=== PATIENT | male | born 1945 | race Caucasian/White ===

== ENCOUNTER 2022-01-10 10:22 | Inpatient (IN) | payer MEDICARE ==
[~2022-01-10] VITALS: Ht 180.3 cm; Wt 78.1 kg
[2022-01-10] MEDS ORDERED: ONDANSETRON 4MG TAB PO PRN (15:45)
[2022-01-10] MEDS ORDERED: ACETAMINOPHEN TAB 650MG DOSE (2X325MG) PO PRN (15:45)
[2022-01-10] MEDS ORDERED: MIRALAX *UNIT DOSE* 17GM PACKET PO PRN (15:45)
[2022-01-10 16:00] VITALS: BP 107/61
[2022-01-10] MEDS ORDERED: AMLO1TAB25 PO (16:59)
[2022-01-10] MEDS ORDERED: THIA100T7 PO (16:59)
[2022-01-10] MEDS ORDERED: METO200T28 PO (16:59)
[2022-01-10] MEDS ORDERED: AMAN100T PO (16:59)
[2022-01-10] MEDS ORDERED: VITA100093 PO (16:59)
[2022-01-10] MEDS ORDERED: ENOX40IN3 SC (16:59)
[2022-01-10] MEDS ORDERED: FOLI1TAB11 PO (16:59)
[2022-01-10] MEDS ORDERED: ATOR40TA75 PO (16:59)
[2022-01-10] MEDS ORDERED: FLOM0.4C39 PO (16:59)
[2022-01-10] MEDS ORDERED: HOME MED LIST COMPLETE! XX SCH (17:00)
[2022-01-10 20:00] VITALS: BP 104/66
[2022-01-10] MEDS: SENNA 8.6 MG TAB (SENOKOT) PO SCH (20:58)
[2022-01-10] MEDS: DOCUSATE SODIUM 100MG CAPSULE PO SCH (20:58)
[2022-01-10] MEDS: ACETAMINOPHEN 500 MG TAB PO SCH (20:58)
[2022-01-10] MEDS: METOPROLOL SUCC (TopROL XL) 100MG *XL* TAB PO SCH (20:59)
[2022-01-10] MEDS: ENOXAPARIN 40MG/0.4ML SYRINGE (J1650 PER 10MG) SC SCH (21:00)
[2022-01-10] MEDS: REMEDY PHYTOPLEX Z-GUARD PASTE 113GM TUBE (FROM STOREROOM PRODUCT) TOP SCH (21:00)
[2022-01-11 06:00] VITALS: BP 96/62
[2022-01-11 06:04] LABS: BASO % 0.4 % (0.0-1.0); EOS # 0.3 10^3/uL (0.0-0.5); EOS % 2.3 % (0.0-3.0); HEMOGLOBIN 11.1 g/dl (13.5-17.5); LYMPH # 1.2 10^3/uL (1.5-5.0); LYMPH % 10.7 % (24.0-44.0); MEAN CORPUSCULAR HEMOGLOBIN 29.4 pg (27.0-33.0); MEAN CORPUSCULAR HGB CONC 31.7 g/dl (32.0-36.5); MEAN CORPUSCULAR VOLUME 92.8 fl (80.0-96.0); MONO # 1.4 10^3/uL (0.0-0.8); MONO % 12.8 % (2.0-8.0); NEUTROPHILS # 8.1 10^3/uL (1.5-8.5); NEUTROPHILS % 73.3 % (36.0-66.0); PLATELET COUNT, AUTOMATED 169 10^3/uL (150-450); RED BLOOD COUNT 3.77 10^6/uL (4.30-6.10); WHITE BLOOD COUNT 11.1 10^3/uL (4.0-10.0)
[2022-01-11 06:34] LABS: ALKALINE PHOSPHATASE 177 U/L (45-117); ALT/SGPT 39 U/L (12-78); AST/SGOT 20 U/L (7-37); BLOOD UREA NITROGEN 13 MG/DL (7-18); CALCIUM LEVEL 8.8 MG/DL (8.8-10.2); CARBON DIOXIDE LEVEL 26 MEQ/L (21-32); CHLORIDE LEVEL 103 MEQ/L (98-107); CREATININE FOR GFR 0.68 MG/DL (0.70-1.30); GLOMERULAR FILTRATION RATE > 60.0 (>42); GLUCOSE, FASTING 110 MG/DL (70-100); POTASSIUM SERUM 3.9 MEQ/L (3.5-5.1); SODIUM LEVEL 135 MEQ/L (136-145); TOTAL PROTEIN 6.8 GM/DL (6.4-8.2)
[2022-01-11] MEDS: COMBIVENT RESPIMAT 100-20MCG INHALER 4GM INH SCH ×3 (08:00→20:44)
[2022-01-11] MEDS: ACETAMINOPHEN 500 MG TAB PO SCH ×3 (09:00→20:27)
[2022-01-11] MEDS: REMEDY PHYTOPLEX Z-GUARD PASTE 113GM TUBE (FROM STOREROOM PRODUCT) TOP SCH ×3 (09:00→20:29)
[2022-01-11] MEDS: DOCUSATE SODIUM 100MG CAPSULE PO SCH ×2 (09:00→20:27)
[2022-01-11] MEDS: POTASSIUM CHLORIDE 10MEQ SR TABLET PO SCH (09:40)
[2022-01-11] MEDS: ATORVASTATIN 20 MG TAB PO SCH (09:40)
[2022-01-11] MEDS: PANTOPRAZOLE 40MG TAB (PROTONIX) PO SCH (09:40)
[2022-01-11] MEDS: AMANTADINE 100MG TABLET PO SCH (09:41)
[2022-01-11] MEDS: TAMSULOSIN 0.4 MG CAP PO SCH (09:41)
[2022-01-11] MEDS: VITAMIN D 1,000 INTERNATIONAL UNITS TABLET PO SCH (09:41)
[2022-01-11] MEDS: FOLIC ACID 1MG TAB PO SCH (09:41)
[2022-01-11] MEDS: METOPROLOL SUCC (TopROL XL) 100MG *XL* TAB PO SCH ×2 (09:43→20:26)
[2022-01-11] MEDS ORDERED: PILL CUTTER 1 EACH XX PRN (12:55)
[2022-01-11] MEDS: THIAMINE 100 MG TAB PO SCH (13:53)
[2022-01-11 14:00] VITALS: BP 108/64
[2022-01-11] MEDS: guaiFENesin 200 MG TAB PO SCH ×2 (16:56→20:28)
[2022-01-11] MEDS: SODIUM CHLORIDE NASAL 0.65% SPRAY BTL (OCEAN) SCH ×2 (16:56→20:28)
[2022-01-11] MEDS ORDERED: FLUBLOK(EGG FREE)(QUAD)INFLUENZA VACC 0.5ML SYRINGE 18YRS & OLDER IM.IMMUN ONE (17:00)
[2022-01-11] MEDS ORDERED: PREVNAR-20 VACCINE 0.5ML SYRINGE IM.IMMUN ONE (17:00)
[2022-01-11] MEDS: PROPRANOLOL 10 MG TAB PO SCH ×2 (17:01→20:26)
[2022-01-11 20:00] VITALS: BP 117/61
[2022-01-11] MEDS: SENNA 8.6 MG TAB (SENOKOT) PO SCH (20:27)
[2022-01-11] MEDS: ENOXAPARIN 40MG/0.4ML SYRINGE (J1650 PER 10MG) SC SCH (20:28)
[2022-01-11] MEDS: FLUTICASONE PROP 0.05% NASAL SPRAY 16 GM (FLONASE) NARES SCH (20:28)
[2022-01-12 06:00] VITALS: BP 102/60
[2022-01-12 07:11] LABS: BASO # 0.1 10^3/uL (0.0-0.2); BASO % 0.5 % (0.0-1.0); EOS # 0.2 10^3/uL (0.0-0.5); HEMATOCRIT 34.5 % (42.0-52.0); LYMPH # 1.1 10^3/uL (1.5-5.0); LYMPH % 10.1 % (24.0-44.0); MEAN CORPUSCULAR HEMOGLOBIN 29.6 pg (27.0-33.0); MEAN CORPUSCULAR HGB CONC 31.9 g/dl (32.0-36.5); MONO # 1.4 10^3/uL (0.0-0.8); MONO % 13.4 % (2.0-8.0); NEUTROPHILS # 7.8 10^3/uL (1.5-8.5); NEUTROPHILS % 73.7 % (36.0-66.0); PLATELET COUNT, AUTOMATED 154 10^3/uL (150-450); RED BLOOD COUNT 3.71 10^6/uL (4.30-6.10); WHITE BLOOD COUNT 10.6 10^3/uL (4.0-10.0)
[2022-01-12] MEDS: PROPRANOLOL 10 MG TAB PO SCH ×3 (08:35→20:26)
[2022-01-12] MEDS: METOPROLOL SUCC (TopROL XL) 100MG *XL* TAB PO SCH ×2 (08:35→20:27)
[2022-01-12] MEDS: DOCUSATE SODIUM 100MG CAPSULE PO SCH ×2 (08:35→20:26)
[2022-01-12] MEDS: guaiFENesin 200 MG TAB PO SCH ×3 (08:43→20:28)
[2022-01-12] MEDS: FOLIC ACID 1MG TAB PO SCH (08:43)
[2022-01-12] MEDS: ATORVASTATIN 20 MG TAB PO SCH (08:43)
[2022-01-12] MEDS: VITAMIN D 1,000 INTERNATIONAL UNITS TABLET PO SCH (08:43)
[2022-01-12] MEDS: POTASSIUM CHLORIDE 10MEQ SR TABLET PO SCH (08:43)
[2022-01-12] MEDS: AMANTADINE 100MG TABLET PO SCH (08:43)
[2022-01-12] MEDS: ACETAMINOPHEN 500 MG TAB PO SCH ×3 (08:43→20:28)
[2022-01-12] MEDS: PANTOPRAZOLE 40MG TAB (PROTONIX) PO SCH (08:43)
[2022-01-12] MEDS: TAMSULOSIN 0.4 MG CAP PO SCH (08:43)
[2022-01-12] MEDS: THIAMINE 100 MG TAB PO SCH (08:43)
[2022-01-12] MEDS: FLUTICASONE PROP 0.05% NASAL SPRAY 16 GM (FLONASE) NARES SCH ×2 (08:44→20:28)
[2022-01-12] MEDS: SODIUM CHLORIDE NASAL 0.65% SPRAY BTL (OCEAN) SCH ×3 (08:44→20:28)
[2022-01-12] MEDS: REMEDY PHYTOPLEX Z-GUARD PASTE 113GM TUBE (FROM STOREROOM PRODUCT) TOP SCH ×3 (08:45→20:29)
[2022-01-12] MEDS: COMBIVENT RESPIMAT 100-20MCG INHALER 4GM INH SCH ×3 (08:52→20:43)
[2022-01-12 14:00] VITALS: BP 104/59
[2022-01-12 20:00] VITALS: BP 110/64
[2022-01-12] MEDS: SENNA 8.6 MG TAB (SENOKOT) PO SCH (20:27)
[2022-01-12] MEDS: ENOXAPARIN 40MG/0.4ML SYRINGE (J1650 PER 10MG) SC SCH (20:28)
[2022-01-13 06:00] VITALS: BP 112/80
[2022-01-13] MEDS: TAMSULOSIN 0.4 MG CAP PO SCH (08:39)
[2022-01-13] MEDS: DOCUSATE SODIUM 100MG CAPSULE PO SCH ×2 (08:39→20:05)
[2022-01-13] MEDS: ATORVASTATIN 20 MG TAB PO SCH (08:40)
[2022-01-13] MEDS: FOLIC ACID 1MG TAB PO SCH (08:40)
[2022-01-13] MEDS: POTASSIUM CHLORIDE 10MEQ SR TABLET PO SCH (08:41)
[2022-01-13] MEDS: METOPROLOL SUCC (TopROL XL) 100MG *XL* TAB PO SCH ×2 (08:41→20:05)
[2022-01-13] MEDS: AMANTADINE 100MG TABLET PO SCH (08:42)
[2022-01-13] MEDS: ACETAMINOPHEN 500 MG TAB PO SCH ×3 (08:42→20:13)
[2022-01-13] MEDS: guaiFENesin 200 MG TAB PO SCH ×3 (08:42→20:12)
[2022-01-13] MEDS: VITAMIN D 1,000 INTERNATIONAL UNITS TABLET PO SCH (08:42)
[2022-01-13] MEDS: THIAMINE 100 MG TAB PO SCH (08:42)
[2022-01-13] MEDS: FLUTICASONE PROP 0.05% NASAL SPRAY 16 GM (FLONASE) NARES SCH ×2 (08:43→20:15)
[2022-01-13] MEDS: SODIUM CHLORIDE NASAL 0.65% SPRAY BTL (OCEAN) SCH ×3 (08:43→20:15)
[2022-01-13] MEDS: PANTOPRAZOLE 40MG TAB (PROTONIX) PO SCH (08:43)
[2022-01-13] MEDS: PROPRANOLOL 10 MG TAB PO SCH ×3 (08:45→20:04)
[2022-01-13] MEDS: COMBIVENT RESPIMAT 100-20MCG INHALER 4GM INH SCH ×3 (08:46→20:33)
[2022-01-13] MEDS: REMEDY PHYTOPLEX Z-GUARD PASTE 113GM TUBE (FROM STOREROOM PRODUCT) TOP SCH ×3 (09:00→20:15)
[2022-01-13 14:00] VITALS: BP 118/63
[2022-01-13 20:00] VITALS: BP 108/64
[2022-01-13] MEDS: SENNA 8.6 MG TAB (SENOKOT) PO SCH (20:05)
[2022-01-13] MEDS: ENOXAPARIN 40MG/0.4ML SYRINGE (J1650 PER 10MG) SC SCH (20:13)
[2022-01-14 06:00] VITALS: BP 138/82
[2022-01-14 07:10] LABS: BASO % 0.6 % (0.0-1.0); EOS # 0.3 10^3/uL (0.0-0.5); EOS % 4.8 % (0.0-3.0); HEMATOCRIT 34.7 % (42.0-52.0); LYMPH # 0.9 10^3/uL (1.5-5.0); LYMPH % 12.9 % (24.0-44.0); MEAN CORPUSCULAR HEMOGLOBIN 29.3 pg (27.0-33.0); MEAN CORPUSCULAR HGB CONC 31.7 g/dl (32.0-36.5); MEAN CORPUSCULAR VOLUME 92.3 fl (80.0-96.0); MONO # 0.9 10^3/uL (0.0-0.8); NEUTROPHILS # 4.7 10^3/uL (1.5-8.5); NEUTROPHILS % 68.3 % (36.0-66.0); PLATELET COUNT, AUTOMATED 159 10^3/uL (150-450); RED BLOOD COUNT 3.76 10^6/uL (4.30-6.10); WHITE BLOOD COUNT 6.9 10^3/uL (4.0-10.0)
[2022-01-14 07:45] LABS: BLOOD UREA NITROGEN 5 MG/DL (7-18); CALCIUM LEVEL 9.1 MG/DL (8.8-10.2); CARBON DIOXIDE LEVEL 27 MEQ/L (21-32); CHLORIDE LEVEL 105 MEQ/L (98-107); CREATININE FOR GFR 0.59 MG/DL (0.70-1.30); GLOMERULAR FILTRATION RATE > 60.0 (>42); GLUCOSE, FASTING 104 MG/DL (70-100); POTASSIUM SERUM 3.9 MEQ/L (3.5-5.1); SODIUM LEVEL 137 MEQ/L (136-145)
[2022-01-14] MEDS: COMBIVENT RESPIMAT 100-20MCG INHALER 4GM INH SCH ×3 (08:00→20:54)
[2022-01-14] MEDS: REMEDY PHYTOPLEX Z-GUARD PASTE 113GM TUBE (FROM STOREROOM PRODUCT) TOP SCH ×3 (09:00→20:10)
[2022-01-14] MEDS: TAMSULOSIN 0.4 MG CAP PO SCH (09:11)
[2022-01-14] MEDS: DOCUSATE SODIUM 100MG CAPSULE PO SCH ×2 (09:11→20:09)
[2022-01-14] MEDS: THIAMINE 100 MG TAB PO SCH (09:11)
[2022-01-14] MEDS: METOPROLOL SUCC (TopROL XL) 100MG *XL* TAB PO SCH (09:11)
[2022-01-14] MEDS: ATORVASTATIN 20 MG TAB PO SCH (09:12)
[2022-01-14] MEDS: VITAMIN D 1,000 INTERNATIONAL UNITS TABLET PO SCH (09:12)
[2022-01-14] MEDS: ACETAMINOPHEN 500 MG TAB PO SCH ×3 (09:12→20:09)
[2022-01-14] MEDS: PANTOPRAZOLE 40MG TAB (PROTONIX) PO SCH (09:12)
[2022-01-14] MEDS: guaiFENesin 200 MG TAB PO SCH ×3 (09:13→20:09)
[2022-01-14] MEDS: PROPRANOLOL 10 MG TAB PO SCH ×3 (09:13→20:08)
[2022-01-14] MEDS: POTASSIUM CHLORIDE 10MEQ SR TABLET PO SCH (09:13)
[2022-01-14] MEDS: FOLIC ACID 1MG TAB PO SCH (09:13)
[2022-01-14] MEDS: AMANTADINE 100MG TABLET PO SCH (09:13)
[2022-01-14] MEDS: FLUTICASONE PROP 0.05% NASAL SPRAY 16 GM (FLONASE) NARES SCH ×2 (09:14→20:09)
[2022-01-14] MEDS: SODIUM CHLORIDE NASAL 0.65% SPRAY BTL (OCEAN) SCH ×3 (09:14→20:10)
[2022-01-14] MEDS: METOPROLOL TART 25 MG TABLET PO SCH ×2 (13:00→18:43)
[2022-01-14 14:00] VITALS: BP 109/58
[2022-01-14 20:00] VITALS: BP 126/86
[2022-01-14] MEDS: ENOXAPARIN 40MG/0.4ML SYRINGE (J1650 PER 10MG) SC SCH (20:08)
[2022-01-14] MEDS: traZODone 25MG PER 1/2 TABLET PO SCH (20:09)
[2022-01-14] MEDS: SENNA 8.6 MG TAB (SENOKOT) PO SCH (20:09)
[2022-01-15] MEDS: METOPROLOL TART 25 MG TABLET PO SCH ×4 (01:00→18:35)
[2022-01-15 06:00] VITALS: BP 130/88
[2022-01-15] MEDS: guaiFENesin 200 MG TAB PO SCH ×3 (08:38→20:42)
[2022-01-15] MEDS: FOLIC ACID 1MG TAB PO SCH (08:38)
[2022-01-15] MEDS: AMANTADINE 100MG TABLET PO SCH (08:38)
[2022-01-15] MEDS: ATORVASTATIN 20 MG TAB PO SCH (08:38)
[2022-01-15] MEDS: THIAMINE 100 MG TAB PO SCH (08:38)
[2022-01-15] MEDS: POTASSIUM CHLORIDE 10MEQ SR TABLET PO SCH (08:38)
[2022-01-15] MEDS: DOCUSATE SODIUM 100MG CAPSULE PO SCH ×2 (08:38→20:42)
[2022-01-15] MEDS: TAMSULOSIN 0.4 MG CAP PO SCH (08:38)
[2022-01-15] MEDS: ACETAMINOPHEN 500 MG TAB PO SCH ×3 (08:39→20:43)
[2022-01-15] MEDS: PANTOPRAZOLE 40MG TAB (PROTONIX) PO SCH (08:39)
[2022-01-15] MEDS: VITAMIN D 1,000 INTERNATIONAL UNITS TABLET PO SCH (08:39)
[2022-01-15] MEDS: PROPRANOLOL 10 MG TAB PO SCH ×3 (08:39→20:42)
[2022-01-15] MEDS: REMEDY PHYTOPLEX Z-GUARD PASTE 113GM TUBE (FROM STOREROOM PRODUCT) TOP SCH ×3 (08:40→20:44)
[2022-01-15] MEDS: SODIUM CHLORIDE NASAL 0.65% SPRAY BTL (OCEAN) SCH ×3 (08:40→20:43)
[2022-01-15] MEDS: FLUTICASONE PROP 0.05% NASAL SPRAY 16 GM (FLONASE) NARES SCH ×2 (08:40→20:43)
[2022-01-15] MEDS: COMBIVENT RESPIMAT 100-20MCG INHALER 4GM INH SCH ×3 (09:28→21:09)
[2022-01-15 14:00] VITALS: BP 116/66
[2022-01-15] MEDS: DICLOFENAC EPOLAMINE 1.3 % PATCH TOP SCH ×2 (15:53→20:41)
[2022-01-15 20:00] VITALS: BP 117/66
[2022-01-15] MEDS: ENOXAPARIN 40MG/0.4ML SYRINGE (J1650 PER 10MG) SC SCH (20:41)
[2022-01-15] MEDS: SENNA 8.6 MG TAB (SENOKOT) PO SCH (20:42)
[2022-01-15] MEDS: traZODone 25MG PER 1/2 TABLET PO SCH (20:42)
[2022-01-16] MEDS: METOPROLOL TART 25 MG TABLET PO SCH ×4 (00:56→18:37)
[2022-01-16 06:00] VITALS: BP 118/74
[2022-01-16 06:40] LABS: BASO # 0.1 10^3/uL (0.0-0.2); BASO % 0.6 % (0.0-1.0); EOS # 0.3 10^3/uL (0.0-0.5); EOS % 3.3 % (0.0-3.0); HEMOGLOBIN 10.9 g/dl (13.5-17.5); LYMPH # 1.2 10^3/uL (1.5-5.0); LYMPH % 13.3 % (24.0-44.0); MEAN CORPUSCULAR HEMOGLOBIN 29.1 pg (27.0-33.0); MEAN CORPUSCULAR HGB CONC 32.1 g/dl (32.0-36.5); MEAN CORPUSCULAR VOLUME 90.9 fl (80.0-96.0); MONO # 1.2 10^3/uL (0.0-0.8); MONO % 13.7 % (2.0-8.0); NEUTROPHILS # 6.1 10^3/uL (1.5-8.5); NEUTROPHILS % 68.5 % (36.0-66.0); PLATELET COUNT, AUTOMATED 171 10^3/uL (150-450); RED BLOOD COUNT 3.74 10^6/uL (4.30-6.10)
[2022-01-16 07:12] LABS: BLOOD UREA NITROGEN 6 MG/DL (7-18); CALCIUM LEVEL 8.7 MG/DL (8.8-10.2); CARBON DIOXIDE LEVEL 25 MEQ/L (21-32); CHLORIDE LEVEL 105 MEQ/L (98-107); CREATININE FOR GFR 0.53 MG/DL (0.70-1.30); GLOMERULAR FILTRATION RATE > 60.0 (>42); GLUCOSE, FASTING 99 MG/DL (70-100); POTASSIUM SERUM 3.8 MEQ/L (3.5-5.1); SODIUM LEVEL 138 MEQ/L (136-145)
[2022-01-16] MEDS: COMBIVENT RESPIMAT 100-20MCG INHALER 4GM INH SCH ×3 (07:21→20:32)
[2022-01-16] MEDS: DICLOFENAC EPOLAMINE 1.3 % PATCH TOP SCH ×2 (08:08→21:02)
[2022-01-16] MEDS: AMANTADINE 100MG TABLET PO SCH (08:08)
[2022-01-16] MEDS: ATORVASTATIN 20 MG TAB PO SCH (08:08)
[2022-01-16] MEDS: ACETAMINOPHEN 500 MG TAB PO SCH ×3 (08:09→21:03)
[2022-01-16] MEDS: DOCUSATE SODIUM 100MG CAPSULE PO SCH ×2 (08:10→21:02)
[2022-01-16] MEDS: THIAMINE 100 MG TAB PO SCH (08:10)
[2022-01-16] MEDS: guaiFENesin 200 MG TAB PO SCH ×3 (08:10→21:02)
[2022-01-16] MEDS: TAMSULOSIN 0.4 MG CAP PO SCH (08:10)
[2022-01-16] MEDS: POTASSIUM CHLORIDE 10MEQ SR TABLET PO SCH (08:11)
[2022-01-16] MEDS: PANTOPRAZOLE 40MG TAB (PROTONIX) PO SCH (08:11)
[2022-01-16] MEDS: VITAMIN D 1,000 INTERNATIONAL UNITS TABLET PO SCH (08:11)
[2022-01-16] MEDS: PROPRANOLOL 10 MG TAB PO SCH ×3 (08:12→21:04)
[2022-01-16] MEDS: FOLIC ACID 1MG TAB PO SCH (08:15)
[2022-01-16] MEDS: FLUTICASONE PROP 0.05% NASAL SPRAY 16 GM (FLONASE) NARES SCH ×2 (08:15→21:08)
[2022-01-16] MEDS: SODIUM CHLORIDE NASAL 0.65% SPRAY BTL (OCEAN) SCH ×3 (08:16→21:07)
[2022-01-16] MEDS: REMEDY PHYTOPLEX Z-GUARD PASTE 113GM TUBE (FROM STOREROOM PRODUCT) TOP SCH ×3 (08:19→21:08)
[2022-01-16] MEDS: NYSTATIN 100,000 UNITS/GM TOPICAL PWD 15GM TOP SCH ×2 (13:47→21:08)
[2022-01-16 14:00] VITALS: BP 113/65
[2022-01-16 20:00] VITALS: BP 110/61
[2022-01-16] MEDS: traZODone 25MG PER 1/2 TABLET PO SCH (21:02)
[2022-01-16] MEDS: ENOXAPARIN 40MG/0.4ML SYRINGE (J1650 PER 10MG) SC SCH (21:02)
[2022-01-16] MEDS: SENNA 8.6 MG TAB (SENOKOT) PO SCH (21:03)
[2022-01-17] MEDS: METOPROLOL TART 25 MG TABLET PO SCH ×4 (01:00→18:58)
[2022-01-17 06:00] VITALS: BP 108/74
[2022-01-17] MEDS: COMBIVENT RESPIMAT 100-20MCG INHALER 4GM INH SCH ×3 (07:14→21:14)
[2022-01-17] MEDS: VITAMIN D 1,000 INTERNATIONAL UNITS TABLET PO SCH (08:57)
[2022-01-17] MEDS: guaiFENesin 200 MG TAB PO SCH ×3 (08:57→20:17)
[2022-01-17] MEDS: POTASSIUM CHLORIDE 10MEQ SR TABLET PO SCH (08:57)
[2022-01-17] MEDS: AMANTADINE 100MG TABLET PO SCH (08:57)
[2022-01-17] MEDS: ATORVASTATIN 20 MG TAB PO SCH (08:58)
[2022-01-17] MEDS: PANTOPRAZOLE 40MG TAB (PROTONIX) PO SCH (08:58)
[2022-01-17] MEDS: THIAMINE 100 MG TAB PO SCH (08:58)
[2022-01-17] MEDS: DOCUSATE SODIUM 100MG CAPSULE PO SCH ×2 (08:58→20:15)
[2022-01-17] MEDS: TAMSULOSIN 0.4 MG CAP PO SCH (08:58)
[2022-01-17] MEDS: FOLIC ACID 1MG TAB PO SCH (08:59)
[2022-01-17] MEDS: PROPRANOLOL 10 MG TAB PO SCH ×3 (09:03→20:18)
[2022-01-17] MEDS: ACETAMINOPHEN 500 MG TAB PO SCH ×3 (09:03→20:16)
[2022-01-17] MEDS: FLUTICASONE PROP 0.05% NASAL SPRAY 16 GM (FLONASE) NARES SCH ×2 (09:04→20:21)
[2022-01-17] MEDS: DICLOFENAC EPOLAMINE 1.3 % PATCH TOP SCH ×2 (09:04→20:17)
[2022-01-17] MEDS: REMEDY PHYTOPLEX Z-GUARD PASTE 113GM TUBE (FROM STOREROOM PRODUCT) TOP SCH ×3 (09:04→20:22)
[2022-01-17] MEDS: NYSTATIN 100,000 UNITS/GM TOPICAL PWD 15GM TOP SCH ×2 (09:04→20:22)
[2022-01-17] MEDS: SODIUM CHLORIDE NASAL 0.65% SPRAY BTL (OCEAN) SCH ×3 (09:04→20:21)
[2022-01-17 14:00] VITALS: BP 119/61
[2022-01-17 18:00] VITALS: BP 116/82
[2022-01-17] MEDS: SENNA 8.6 MG TAB (SENOKOT) PO SCH (20:15)
[2022-01-17] MEDS: traZODone 25MG PER 1/2 TABLET PO SCH (20:16)
[2022-01-17] MEDS: ENOXAPARIN 40MG/0.4ML SYRINGE (J1650 PER 10MG) SC SCH (20:20)
[2022-01-18] MEDS: METOPROLOL TART 25 MG TABLET PO SCH ×4 (01:00→18:29)
[2022-01-18 05:55] LABS: BASO # 0.1 10^3/uL (0.0-0.2); BASO % 0.7 % (0.0-1.0); EOS # 0.3 10^3/uL (0.0-0.5); EOS % 4.3 % (0.0-3.0); HEMATOCRIT 32.8 % (42.0-52.0); HEMOGLOBIN 10.5 g/dl (13.5-17.5); LYMPH # 1.5 10^3/uL (1.5-5.0); LYMPH % 19.9 % (24.0-44.0); MEAN CORPUSCULAR HEMOGLOBIN 29.2 pg (27.0-33.0); MEAN CORPUSCULAR VOLUME 91.4 fl (80.0-96.0); MONO % 13.5 % (2.0-8.0); NEUTROPHILS # 4.5 10^3/uL (1.5-8.5); NEUTROPHILS % 60.1 % (36.0-66.0); PLATELET COUNT, AUTOMATED 188 10^3/uL (150-450); RED BLOOD COUNT 3.59 10^6/uL (4.30-6.10); WHITE BLOOD COUNT 7.4 10^3/uL (4.0-10.0)
[2022-01-18 06:00] VITALS: BP 127/73
[2022-01-18 06:28] LABS: BLOOD UREA NITROGEN 7 MG/DL (7-18); CARBON DIOXIDE LEVEL 27 MEQ/L (21-32); CHLORIDE LEVEL 105 MEQ/L (98-107); CREATININE FOR GFR 0.68 MG/DL (0.70-1.30); GLOMERULAR FILTRATION RATE > 60.0 (>42); GLUCOSE, FASTING 106 MG/DL (70-100); POTASSIUM SERUM 3.9 MEQ/L (3.5-5.1); SODIUM LEVEL 137 MEQ/L (136-145)
[2022-01-18] MEDS: COMBIVENT RESPIMAT 100-20MCG INHALER 4GM INH SCH ×3 (07:17→21:25)
[2022-01-18] MEDS: ATORVASTATIN 20 MG TAB PO SCH (08:29)
[2022-01-18] MEDS: PANTOPRAZOLE 40MG TAB (PROTONIX) PO SCH (08:29)
[2022-01-18] MEDS: AMANTADINE 100MG TABLET PO SCH (08:29)
[2022-01-18] MEDS: guaiFENesin 200 MG TAB PO SCH ×3 (08:29→20:53)
[2022-01-18] MEDS: DICLOFENAC EPOLAMINE 1.3 % PATCH TOP SCH ×2 (08:29→20:55)
[2022-01-18] MEDS: DOCUSATE SODIUM 100MG CAPSULE PO SCH ×2 (08:29→20:55)
[2022-01-18] MEDS: VITAMIN D 1,000 INTERNATIONAL UNITS TABLET PO SCH (08:29)
[2022-01-18] MEDS: ACETAMINOPHEN 500 MG TAB PO SCH ×3 (08:29→20:55)
[2022-01-18] MEDS: TAMSULOSIN 0.4 MG CAP PO SCH (08:30)
[2022-01-18] MEDS: POTASSIUM CHLORIDE 10MEQ SR TABLET PO SCH (08:30)
[2022-01-18] MEDS: FOLIC ACID 1MG TAB PO SCH (08:30)
[2022-01-18] MEDS: THIAMINE 100 MG TAB PO SCH (08:30)
[2022-01-18] MEDS: REMEDY PHYTOPLEX Z-GUARD PASTE 113GM TUBE (FROM STOREROOM PRODUCT) TOP SCH ×3 (08:31→20:56)
[2022-01-18] MEDS: NYSTATIN 100,000 UNITS/GM TOPICAL PWD 15GM TOP SCH ×2 (08:32→20:56)
[2022-01-18] MEDS: PROPRANOLOL 10 MG TAB PO SCH ×3 (08:32→20:54)
[2022-01-18] MEDS: FLUTICASONE PROP 0.05% NASAL SPRAY 16 GM (FLONASE) NARES SCH ×2 (08:33→20:56)
[2022-01-18] MEDS: SODIUM CHLORIDE NASAL 0.65% SPRAY BTL (OCEAN) SCH ×3 (08:33→20:56)
[2022-01-18 14:10] VITALS: BP 104/59
[2022-01-18 20:00] VITALS: BP 122/63
[2022-01-18] MEDS: ENOXAPARIN 40MG/0.4ML SYRINGE (J1650 PER 10MG) SC SCH (20:53)
[2022-01-18] MEDS: SENNA 8.6 MG TAB (SENOKOT) PO SCH (20:55)
[2022-01-18] MEDS: traZODone 25MG PER 1/2 TABLET PO SCH (20:55)
[2022-01-19] MEDS: METOPROLOL TART 25 MG TABLET PO SCH ×4 (01:00→18:47)
[2022-01-19 06:00] VITALS: BP 150/79
[2022-01-19] MEDS: COMBIVENT RESPIMAT 100-20MCG INHALER 4GM INH SCH ×3 (07:22→20:56)
[2022-01-19] MEDS: ATORVASTATIN 20 MG TAB PO SCH (08:41)
[2022-01-19] MEDS: DICLOFENAC EPOLAMINE 1.3 % PATCH TOP SCH ×2 (08:41→20:48)
[2022-01-19] MEDS: ACETAMINOPHEN 500 MG TAB PO SCH ×3 (08:41→20:25)
[2022-01-19] MEDS: guaiFENesin 200 MG TAB PO SCH ×3 (08:41→20:26)
[2022-01-19] MEDS: THIAMINE 100 MG TAB PO SCH (08:42)
[2022-01-19] MEDS: PANTOPRAZOLE 40MG TAB (PROTONIX) PO SCH (08:42)
[2022-01-19] MEDS: VITAMIN D 1,000 INTERNATIONAL UNITS TABLET PO SCH (08:42)
[2022-01-19] MEDS: FOLIC ACID 1MG TAB PO SCH (08:42)
[2022-01-19] MEDS: TAMSULOSIN 0.4 MG CAP PO SCH (08:42)
[2022-01-19] MEDS: DOCUSATE SODIUM 100MG CAPSULE PO SCH ×2 (08:42→20:26)
[2022-01-19] MEDS: POTASSIUM CHLORIDE 10MEQ SR TABLET PO SCH (08:42)
[2022-01-19] MEDS: AMANTADINE 100MG TABLET PO SCH (08:42)
[2022-01-19] MEDS: NYSTATIN 100,000 UNITS/GM TOPICAL PWD 15GM TOP SCH ×2 (08:43→20:27)
[2022-01-19] MEDS: PROPRANOLOL 10 MG TAB PO SCH ×3 (08:43→20:23)
[2022-01-19] MEDS: FLUTICASONE PROP 0.05% NASAL SPRAY 16 GM (FLONASE) NARES SCH ×2 (08:44→20:27)
[2022-01-19] MEDS: SODIUM CHLORIDE NASAL 0.65% SPRAY BTL (OCEAN) SCH ×3 (08:44→20:27)
[2022-01-19] MEDS: REMEDY PHYTOPLEX Z-GUARD PASTE 113GM TUBE (FROM STOREROOM PRODUCT) TOP SCH ×3 (08:44→20:27)
[2022-01-19 14:00] VITALS: BP 108/61
[2022-01-19 20:00] VITALS: BP 114/66
[2022-01-19] MEDS: traZODone 25MG PER 1/2 TABLET PO SCH (20:25)
[2022-01-19] MEDS: SENNA 8.6 MG TAB (SENOKOT) PO SCH (20:26)
[2022-01-19] MEDS: ENOXAPARIN 40MG/0.4ML SYRINGE (J1650 PER 10MG) SC SCH (20:26)
[2022-01-20] MEDS: METOPROLOL TART 25 MG TABLET PO SCH ×4 (01:10→18:49)
[2022-01-20 06:00] VITALS: BP 109/56
[2022-01-20] MEDS: COMBIVENT RESPIMAT 100-20MCG INHALER 4GM INH SCH ×3 (07:18→20:22)
[2022-01-20] MEDS: PANTOPRAZOLE 40MG TAB (PROTONIX) PO SCH (08:10)
[2022-01-20] MEDS: THIAMINE 100 MG TAB PO SCH (08:10)
[2022-01-20] MEDS: VITAMIN D 1,000 INTERNATIONAL UNITS TABLET PO SCH (08:10)
[2022-01-20] MEDS: POTASSIUM CHLORIDE 10MEQ SR TABLET PO SCH (08:10)
[2022-01-20] MEDS: TAMSULOSIN 0.4 MG CAP PO SCH (08:10)
[2022-01-20] MEDS: guaiFENesin 200 MG TAB PO SCH ×3 (08:11→20:29)
[2022-01-20] MEDS: DOCUSATE SODIUM 100MG CAPSULE PO SCH ×2 (08:11→20:29)
[2022-01-20] MEDS: FOLIC ACID 1MG TAB PO SCH (08:11)
[2022-01-20] MEDS: ATORVASTATIN 20 MG TAB PO SCH (08:11)
[2022-01-20] MEDS: DICLOFENAC EPOLAMINE 1.3 % PATCH TOP SCH ×2 (08:11→20:30)
[2022-01-20] MEDS: SODIUM CHLORIDE NASAL 0.65% SPRAY BTL (OCEAN) SCH ×3 (08:12→20:30)
[2022-01-20] MEDS: AMANTADINE 100MG TABLET PO SCH (08:12)
[2022-01-20] MEDS: ACETAMINOPHEN 500 MG TAB PO SCH ×3 (08:12→20:29)
[2022-01-20] MEDS: FLUTICASONE PROP 0.05% NASAL SPRAY 16 GM (FLONASE) NARES SCH ×2 (08:12→20:30)
[2022-01-20] MEDS: REMEDY PHYTOPLEX Z-GUARD PASTE 113GM TUBE (FROM STOREROOM PRODUCT) TOP SCH ×3 (08:13→20:31)
[2022-01-20] MEDS: NYSTATIN 100,000 UNITS/GM TOPICAL PWD 15GM TOP SCH ×2 (08:13→20:31)
[2022-01-20] MEDS: PROPRANOLOL 10 MG TAB PO SCH ×3 (08:14→20:30)
[2022-01-20 14:00] VITALS: BP 104/55
[2022-01-20 20:00] VITALS: BP 124/82
[2022-01-20] MEDS: SENNA 8.6 MG TAB (SENOKOT) PO SCH (20:28)
[2022-01-20] MEDS: traZODone 25MG PER 1/2 TABLET PO SCH (20:28)
[2022-01-20] MEDS: ENOXAPARIN 40MG/0.4ML SYRINGE (J1650 PER 10MG) SC SCH (20:30)
[2022-01-21] MEDS: METOPROLOL TART 25 MG TABLET PO SCH ×4 (01:00→18:12)
[2022-01-21 06:00] VITALS: BP 120/70
[2022-01-21] MEDS: PANTOPRAZOLE 40MG TAB (PROTONIX) PO SCH (08:39)
[2022-01-21] MEDS: guaiFENesin 200 MG TAB PO SCH ×3 (08:39→20:06)
[2022-01-21] MEDS: TAMSULOSIN 0.4 MG CAP PO SCH (08:40)
[2022-01-21] MEDS: THIAMINE 100 MG TAB PO SCH (08:40)
[2022-01-21] MEDS: POTASSIUM CHLORIDE 10MEQ SR TABLET PO SCH (08:40)
[2022-01-21] MEDS: FOLIC ACID 1MG TAB PO SCH (08:40)
[2022-01-21] MEDS: ATORVASTATIN 20 MG TAB PO SCH (08:40)
[2022-01-21] MEDS: AMANTADINE 100MG TABLET PO SCH (08:40)
[2022-01-21] MEDS: PROPRANOLOL 10 MG TAB PO SCH ×3 (08:40→20:08)
[2022-01-21] MEDS: VITAMIN D 1,000 INTERNATIONAL UNITS TABLET PO SCH (08:40)
[2022-01-21] MEDS: ACETAMINOPHEN 500 MG TAB PO SCH ×3 (08:41→20:06)
[2022-01-21] MEDS: DICLOFENAC EPOLAMINE 1.3 % PATCH TOP SCH ×2 (08:41→20:06)
[2022-01-21] MEDS: DOCUSATE SODIUM 100MG CAPSULE PO SCH ×2 (08:41→20:08)
[2022-01-21] MEDS: FLUTICASONE PROP 0.05% NASAL SPRAY 16 GM (FLONASE) NARES SCH ×2 (08:43→20:09)
[2022-01-21] MEDS: NYSTATIN 100,000 UNITS/GM TOPICAL PWD 15GM TOP SCH ×2 (08:43→20:08)
[2022-01-21] MEDS: SODIUM CHLORIDE NASAL 0.65% SPRAY BTL (OCEAN) SCH ×3 (08:43→20:09)
[2022-01-21] MEDS: REMEDY PHYTOPLEX Z-GUARD PASTE 113GM TUBE (FROM STOREROOM PRODUCT) TOP SCH ×3 (08:44→20:08)
[2022-01-21] MEDS: COMBIVENT RESPIMAT 100-20MCG INHALER 4GM INH SCH ×3 (09:00→21:13)
[2022-01-21 10:22] LABS: BASO # 0.1 10^3/uL (0.0-0.2); BASO % 0.5 % (0.0-1.0); EOS # 0.3 10^3/uL (0.0-0.5); EOS % 3.3 % (0.0-3.0); HEMATOCRIT 34.9 % (42.0-52.0); HEMOGLOBIN 10.8 g/dl (13.5-17.5); LYMPH # 1.2 10^3/uL (1.5-5.0); MEAN CORPUSCULAR HEMOGLOBIN 28.9 pg (27.0-33.0); MEAN CORPUSCULAR HGB CONC 30.9 g/dl (32.0-36.5); MEAN CORPUSCULAR VOLUME 93.3 fl (80.0-96.0); MONO # 0.9 10^3/uL (0.0-0.8); MONO % 9.6 % (2.0-8.0); NEUTROPHILS # 7.2 10^3/uL (1.5-8.5); NEUTROPHILS % 73.4 % (36.0-66.0); PLATELET COUNT, AUTOMATED 263 10^3/uL (150-450); RED BLOOD COUNT 3.74 10^6/uL (4.30-6.10); WHITE BLOOD COUNT 9.8 10^3/uL (4.0-10.0)
[2022-01-21 10:59] LABS: BLOOD UREA NITROGEN 8 MG/DL (7-18); CALCIUM LEVEL 8.8 MG/DL (8.8-10.2); CARBON DIOXIDE LEVEL 28 MEQ/L (21-32); CHLORIDE LEVEL 106 MEQ/L (98-107); CREATININE FOR GFR 0.69 MG/DL (0.70-1.30); GLOMERULAR FILTRATION RATE > 60.0 (>42); GLUCOSE, FASTING 103 MG/DL (70-100); POTASSIUM SERUM 3.9 MEQ/L (3.5-5.1); SODIUM LEVEL 140 MEQ/L (136-145)
[2022-01-21 12:05] VITALS: BP 120/65
[2022-01-21 14:00] VITALS: BP 101/61
[2022-01-21 18:12] VITALS: BP 121/68
[2022-01-21 20:00] VITALS: BP 110/62
[2022-01-21] MEDS: ENOXAPARIN 40MG/0.4ML SYRINGE (J1650 PER 10MG) SC SCH (20:07)
[2022-01-21] MEDS: SENNA 8.6 MG TAB (SENOKOT) PO SCH (20:07)
[2022-01-21] MEDS: traZODone 25MG PER 1/2 TABLET PO SCH (20:08)
[2022-01-22] MEDS: METOPROLOL TART 25 MG TABLET PO SCH ×4 (01:00→17:35)
[2022-01-22 06:00] VITALS: BP 119/70
[2022-01-22] MEDS: FOLIC ACID 1MG TAB PO SCH (08:15)
[2022-01-22] MEDS: AMANTADINE 100MG TABLET PO SCH (08:15)
[2022-01-22] MEDS: guaiFENesin 200 MG TAB PO SCH ×3 (08:15→20:55)
[2022-01-22] MEDS: VITAMIN D 1,000 INTERNATIONAL UNITS TABLET PO SCH (08:15)
[2022-01-22] MEDS: ATORVASTATIN 20 MG TAB PO SCH (08:15)
[2022-01-22] MEDS: POTASSIUM CHLORIDE 10MEQ SR TABLET PO SCH (08:15)
[2022-01-22] MEDS: PROPRANOLOL 10 MG TAB PO SCH ×3 (08:16→20:56)
[2022-01-22] MEDS: THIAMINE 100 MG TAB PO SCH (08:16)
[2022-01-22] MEDS: ACETAMINOPHEN 500 MG TAB PO SCH ×3 (08:16→20:56)
[2022-01-22] MEDS: DOCUSATE SODIUM 100MG CAPSULE PO SCH ×2 (08:16→20:58)
[2022-01-22] MEDS: TAMSULOSIN 0.4 MG CAP PO SCH (08:16)
[2022-01-22] MEDS: REMEDY PHYTOPLEX Z-GUARD PASTE 113GM TUBE (FROM STOREROOM PRODUCT) TOP SCH ×3 (08:17→20:57)
[2022-01-22] MEDS: FLUTICASONE PROP 0.05% NASAL SPRAY 16 GM (FLONASE) NARES SCH ×2 (08:17→20:58)
[2022-01-22] MEDS: NYSTATIN 100,000 UNITS/GM TOPICAL PWD 15GM TOP SCH ×2 (08:17→20:58)
[2022-01-22] MEDS: SODIUM CHLORIDE NASAL 0.65% SPRAY BTL (OCEAN) SCH ×3 (08:17→20:58)
[2022-01-22] MEDS: PANTOPRAZOLE 40MG TAB (PROTONIX) PO SCH (08:17)
[2022-01-22] MEDS: DICLOFENAC EPOLAMINE 1.3 % PATCH TOP SCH ×2 (08:17→20:59)
[2022-01-22] MEDS: COMBIVENT RESPIMAT 100-20MCG INHALER 4GM INH SCH ×3 (08:55→20:34)
[2022-01-22 14:00] VITALS: BP 100/68
[2022-01-22 17:33] VITALS: BP 113/60
[2022-01-22 20:00] VITALS: BP 101/68
[2022-01-22] MEDS: traZODone 25MG PER 1/2 TABLET PO SCH (20:55)
[2022-01-22] MEDS: ENOXAPARIN 40MG/0.4ML SYRINGE (J1650 PER 10MG) SC SCH (20:57)
[2022-01-22] MEDS: SENNA 8.6 MG TAB (SENOKOT) PO SCH (20:58)
[2022-01-22 23:33] VITALS: BP 111/55
[2022-01-23] MEDS: METOPROLOL TART 25 MG TABLET PO SCH ×4 (00:47→18:58)
[2022-01-23 06:00] VITALS: BP 118/65
[2022-01-23 06:47] LABS: BASO % 0.5 % (0.0-1.0); EOS # 0.3 10^3/uL (0.0-0.5); EOS % 3.7 % (0.0-3.0); HEMATOCRIT 32.7 % (42.0-52.0); HEMOGLOBIN 10.5 g/dl (13.5-17.5); LYMPH # 1.4 10^3/uL (1.5-5.0); LYMPH % 16.8 % (24.0-44.0); MEAN CORPUSCULAR HEMOGLOBIN 29.4 pg (27.0-33.0); MEAN CORPUSCULAR HGB CONC 32.1 g/dl (32.0-36.5); MEAN CORPUSCULAR VOLUME 91.6 fl (80.0-96.0); MONO % 11.7 % (2.0-8.0); NEUTROPHILS # 5.6 10^3/uL (1.5-8.5); NEUTROPHILS % 66.3 % (36.0-66.0); PLATELET COUNT, AUTOMATED 270 10^3/uL (150-450); RED BLOOD COUNT 3.57 10^6/uL (4.30-6.10); WHITE BLOOD COUNT 8.4 10^3/uL (4.0-10.0)
[2022-01-23 07:25] LABS: BLOOD UREA NITROGEN 8 MG/DL (9-23); CALCIUM LEVEL 8.7 MG/DL (8.3-10.6); CARBON DIOXIDE LEVEL 24 MMOL/L (20-31); CHLORIDE LEVEL 102 MMOL/L (98-107); CREATININE FOR GFR 0.58 MG/DL (0.70-1.30); GLOMERULAR FILTRATION RATE > 60.0 (>42); GLUCOSE, FASTING 116 MG/DL (74-106); POTASSIUM SERUM 4.1 MMOL/L (3.5-5.1); SODIUM LEVEL 137 MMOL/L (136-145)
[2022-01-23] MEDS: PANTOPRAZOLE 40MG TAB (PROTONIX) PO SCH (07:47)
[2022-01-23] MEDS: VITAMIN D 1,000 INTERNATIONAL UNITS TABLET PO SCH (07:47)
[2022-01-23] MEDS: FOLIC ACID 1MG TAB PO SCH (07:47)
[2022-01-23] MEDS: ATORVASTATIN 20 MG TAB PO SCH (07:47)
[2022-01-23] MEDS: AMANTADINE 100MG TABLET PO SCH (07:47)
[2022-01-23] MEDS: THIAMINE 100 MG TAB PO SCH (07:47)
[2022-01-23] MEDS: TAMSULOSIN 0.4 MG CAP PO SCH (07:47)
[2022-01-23] MEDS: POTASSIUM CHLORIDE 10MEQ SR TABLET PO SCH (07:48)
[2022-01-23] MEDS: ACETAMINOPHEN 500 MG TAB PO SCH ×3 (07:49→20:50)
[2022-01-23] MEDS: guaiFENesin 200 MG TAB PO SCH ×3 (07:49→20:49)
[2022-01-23] MEDS: DOCUSATE SODIUM 100MG CAPSULE PO SCH ×2 (07:49→20:48)
[2022-01-23] MEDS: DICLOFENAC EPOLAMINE 1.3 % PATCH TOP SCH ×2 (07:49→20:56)
[2022-01-23] MEDS: PROPRANOLOL 10 MG TAB PO SCH ×3 (07:50→20:55)
[2022-01-23] MEDS: FLUTICASONE PROP 0.05% NASAL SPRAY 16 GM (FLONASE) NARES SCH ×2 (07:50→20:51)
[2022-01-23] MEDS: SODIUM CHLORIDE NASAL 0.65% SPRAY BTL (OCEAN) SCH ×3 (07:50→20:51)
[2022-01-23] MEDS: REMEDY PHYTOPLEX Z-GUARD PASTE 113GM TUBE (FROM STOREROOM PRODUCT) TOP SCH ×3 (07:51→20:53)
[2022-01-23] MEDS: NYSTATIN 100,000 UNITS/GM TOPICAL PWD 15GM TOP SCH ×2 (07:51→20:51)
[2022-01-23] MEDS: COMBIVENT RESPIMAT 100-20MCG INHALER 4GM INH SCH ×3 (08:02→19:27)
[2022-01-23 14:00] VITALS: BP 120/63
[2022-01-23 20:00] VITALS: BP 116/60
[2022-01-23] MEDS: traZODone 25MG PER 1/2 TABLET PO SCH (20:48)
[2022-01-23] MEDS: SENNA 8.6 MG TAB (SENOKOT) PO SCH (20:48)
[2022-01-23] MEDS: ENOXAPARIN 40MG/0.4ML SYRINGE (J1650 PER 10MG) SC SCH (20:49)
[2022-01-24] MEDS: METOPROLOL TART 25 MG TABLET PO SCH ×3 (01:00→12:21)
[2022-01-24 06:52] VITALS: BP 124/84
[2022-01-24] MEDS: ACETAMINOPHEN 500 MG TAB PO SCH (08:08)
[2022-01-24] MEDS: DICLOFENAC EPOLAMINE 1.3 % PATCH TOP SCH (08:08)
[2022-01-24] MEDS: VITAMIN D 1,000 INTERNATIONAL UNITS TABLET PO SCH (08:09)
[2022-01-24] MEDS: PANTOPRAZOLE 40MG TAB (PROTONIX) PO SCH (08:09)
[2022-01-24] MEDS: guaiFENesin 200 MG TAB PO SCH (08:09)
[2022-01-24] MEDS: THIAMINE 100 MG TAB PO SCH (08:09)
[2022-01-24] MEDS: AMANTADINE 100MG TABLET PO SCH (08:10)
[2022-01-24] MEDS: ATORVASTATIN 20 MG TAB PO SCH (08:10)
[2022-01-24] MEDS: POTASSIUM CHLORIDE 10MEQ SR TABLET PO SCH (08:10)
[2022-01-24] MEDS: TAMSULOSIN 0.4 MG CAP PO SCH (08:10)
[2022-01-24] MEDS: FOLIC ACID 1MG TAB PO SCH (08:11)
[2022-01-24] MEDS: FLUTICASONE PROP 0.05% NASAL SPRAY 16 GM (FLONASE) NARES SCH (08:19)
[2022-01-24] MEDS: NYSTATIN 100,000 UNITS/GM TOPICAL PWD 15GM TOP SCH (08:20)
[2022-01-24] MEDS: SODIUM CHLORIDE NASAL 0.65% SPRAY BTL (OCEAN) SCH (08:20)
[2022-01-24] MEDS: PROPRANOLOL 10 MG TAB PO SCH (08:24)
[2022-01-24] MEDS: DOCUSATE SODIUM 100MG CAPSULE PO SCH (08:24)
[2022-01-24] MEDS: COMBIVENT RESPIMAT 100-20MCG INHALER 4GM INH SCH (08:49)
[2022-01-24] MEDS: REMEDY PHYTOPLEX Z-GUARD PASTE 113GM TUBE (FROM STOREROOM PRODUCT) TOP SCH (09:00)
[2022-01-24] MEDS ORDERED: ATOR40TA75 PO (10:52)
[2022-01-24] MEDS ORDERED: METO1TAB87 PO (10:52)
[2022-01-24] MEDS ORDERED: TRAZ-252 PO (10:52)
[2022-01-24] MEDS ORDERED: POTA-136 PO (10:52)
[2022-01-24] MEDS ORDERED: FLOM0.4C39 PO (10:52)
[2022-01-24] MEDS ORDERED: AMAN100T PO (10:52)
[2022-01-24] MEDS ORDERED: AMLO1TAB25 PO (10:52)
[2022-01-24 12:21] VITALS: BP 100/66
[2022-01-25] MEDS ORDERED: amLODIPine 5 MG TAB PO SCH (09:00)
== END 2022-01-24 13:08 | disposition home or self-care (01) | DRG 561 ==
LOC: M PM&R 15:55
PROVIDERS: ADMIT Physical Medicine & Rehabilitation; ATTEND Physical Medicine & Rehabilitation
DX: S82.141D Displaced bicondylar fracture of right tibia, subsequent encounter for closed fracture with routine healing (principal); S82.831D Other fracture of upper and lower end of right fibula, subsequent encounter for closed fracture with routine healing; I48.91 Unspecified atrial fibrillation; I25.10 Atherosclerotic heart disease of native coronary artery without angina pectoris; I10 Essential (primary) hypertension; S22.41XD Multiple fractures of ribs, right side, subsequent encounter for fracture with routine healing; S02.30XD Fracture of orbital floor, unspecified side, subsequent encounter for fracture with routine healing; S02.40FD Zygomatic fracture, left side, subsequent encounter for fracture with routine healing; S06.5X0D Traumatic subdural hemorrhage without loss of consciousness, subsequent encounter; R13.10 Dysphagia, unspecified; N40.0 Benign prostatic hyperplasia without lower urinary tract symptoms; R26.89 Other abnormalities of gait and mobility; Z95.5 Presence of coronary angioplasty implant and graft; Z79.01 Long term (current) use of anticoagulants; E78.5 Hyperlipidemia, unspecified; H35.3190 Nonexudative age-related macular degeneration, unspecified eye, stage unspecified; Z74.1 Need for assistance with personal care; Z74.09 Other reduced mobility; G47.00 Insomnia, unspecified; Z79.899 Other long term (current) drug therapy; Z87.891 Personal history of nicotine dependence; J44.9 Chronic obstructive pulmonary disease, unspecified; I71.9 Aortic aneurysm of unspecified site, without rupture

== ENCOUNTER → 2022-02-07 | Outpatient (CLI) | payer MEDICARE ==
[~2022-02-07] MED LIST: AMAN100T PO; AMLO1TAB25 PO; ATOR40TA75 PO; ENOX40IN3 SC; FLOM0.4C39 PO; FOLI1TAB11 PO; METO1TAB87 PO; METO200T28 PO; POTA-136 PO; THIA100T7 PO; TRAZ-252 PO; VITA100093 PO
== END ==
LOC: M SOG 08:51
PROVIDERS: ATTEND Orthopaedic Surgery
DX: M25.561 Pain in right knee (principal); Z53.9 Procedure and treatment not carried out, unspecified reason